=== PATIENT | male | born 1990 | race Caucasian/White ===

== ENCOUNTER 2016-11-20 13:10 | Emergency (ER) | payer SELFPAY ==
--- NOTE | 2016-11-20 13:39 | ER Document Report ---
ED Medical Screen (RME) - General Stated Complaint: VOMITING Notes: onset: 2 days Nausea with vomiting emesis x7-8, has not been able to tolerate PO, no hematemesis or hematochezia Has been having loose bowel movements for the past 2 days most recently within 2 hours. No bright red blood per rectum I have greeted and performed a rapid initial assessment of this patient. A comprehensive ED assessment and evaluation of the patient, analysis of test results and completion of the medical decision making process will be conducted by additional ED providers. TRAVEL OUTSIDE OF THE [place] IN LAST 30 DAYS: No - Related Data Allergies/Adverse Reactions: cefaclor [From Ceclor] Allergy (Verified 11/20/16 13:38) Past Medical History Pulmonary Medical History: Reports: Hx Asthma - Immunizations Hx Diphtheria, Pertussis, Tetanus Vaccination: Yes - unknown last
[2016-11-20 13:40] VITALS: BP 107/68
[2016-11-20] MEDS ORDERED: ONDANSETRON 4 MG TAB.RAPDIS PO ONE (13:40)
[2016-11-20 14:24] LABS: ABSOLUTE BASOPHILS # (AUTO) 0.1 10^3/uL (0.0-0.2); ABSOLUTE EOSINOPHILS # (AUTO) 0.1 10^3/uL (0.0-0.6); ABSOLUTE LYMPHOCYTES (AUTO) 1.6 10^3/uL (0.5-4.7); ABSOLUTE MONOCYTES (AUTO) 0.4 10^3/uL (0.1-1.4); ABSOLUTE NEUT (AUTO) 5.9 10^3/uL (1.7-8.2); BASOPHILS % (AUTO) 0.8 % (0-2); EOSINOPHILS % (AUTO) 1.5 % (0-6); HEMATOCRIT 46.7 % (37.9-51.0); HEMOGLOBIN 15.5 g/dL (13.5-17.0); HGB HCT DIFFERENCE -0.2; MEAN CORPUSCULAR HEMOGLOBIN 29.2 pg (27.0-33.4); MEAN CORPUSCULAR HGB CONC 33.3 g/dL (32.0-36.0); MEAN CORPUSCULAR VOLUME 88 fl (80-97); MONOCYTES % (AUTO) 4.6 % (3-13); RED BLOOD COUNT 5.32 10^6/uL (4.35-5.55); RED CELL DISTRIBUTION WIDTH 12.8 % (11.5-14.0); SEGMENTED NEUTROPHILS % (AUTO) 73.1 % (42-78); WHITE BLOOD COUNT 8.1 10^3/uL (4.0-10.5)
[2016-11-20 14:43] LABS: ALANINE AMINOTRANSFERASE 29 U/L (21-72); ALBUMIN 4.6 g/dL (3.5-5.0); ALKALINE PHOSPHATASE 65 U/L (38-126); ANION GAP 10 (5-19); ASPARTATE AMINO TRANSFERASE 18 U/L (17-59); BLOOD UREA NITROGEN 11 mg/dL (7-20); CALCIUM 9.7 mg/dL (8.4-10.2); CARBON DIOXIDE 27 mmol/L (22-30); CHLORIDE 104 mmol/L (98-107); CREATININE RESULT 0.95 mg/dL (0.52-1.25); GLUCOSE 91 mg/dL (75-110); LIPASE 90.6 U/L (23-300); POTASSIUM 4.2 mmol/L (3.6-5.0); SODIUM 141.4 mmol/L (137-145); TOTAL PROTEIN 6.9 g/dL (6.3-8.2)
== END 2016-11-20 17:10 | disposition left against medical advice (07) ==
LOC: ER 13:10
DX: Z53.9 Procedure and treatment not carried out, unspecified reason (principal); R11.10 Vomiting, unspecified
CPT/HCPCS: 99281; 36415; 83690; 85025; 80053; S0119

== ENCOUNTER 2019-09-29 00:38 | Emergency (ER) | payer OTHER ==
--- NOTE | 2019-09-29 02:24 | RADIOLOGY REPORT (SQ) ---
CLINICAL HISTORY: bone pain COMPARISON: None. TECHNIQUE: XR FOOT 3 OR MORE VIEWS 09/29/2019 12:00 AM [employer] FINDINGS: There is an old fracture at the base of the fifth metatarsal. Joint spaces are preserved. Soft tissues are unremarkable. IMPRESSION: No acute osseous findings.
--- NOTE | 2019-09-29 03:03 | ER Document Report ---
ED Extremity Problem, Lower - General Chief Complaint: Foot Injury Stated Complaint: RIGHT FOOT PAIN Time Seen by Provider: 09/29/19 02:32 Notes: 29-year-old male presents with right foot pain that that started after he injured it while taking out the garbage. Patient states he stepped next to the palate and he lost his footing causing his weight to go onto the foot. Patient states most of his pain is lateral. Patient denies any previous injury to this foot. TRAVEL OUTSIDE OF THE [place] IN LAST 30 DAYS: No - Related Data Allergies/Adverse Reactions: [facility] Allergy (Verified 11/20/16 13:38) Past Medical History - Social History Smoking Status: Current Every Day Smoker Frequency of alcohol use: Occasional Drug Abuse: None Family History: Reviewed & Not Pertinent Patient has suicidal ideation: No Patient has homicidal ideation: No Pulmonary Medical History: Reports: Hx Asthma Renal/ Medical History: Denies: Hx Peritoneal Dialysis - Immunizations Hx Diphtheria, Pertussis, Tetanus Vaccination: Yes - unknown last Review of Systems - Review of Systems Notes: Constitutional: Negative for fever. HENT: Negative for sore throat. Eyes: Negative for visual changes. Cardiovascular: Negative for chest pain. Respiratory: Negative for shortness of breath. Gastrointestinal: Negative for abdominal pain, vomiting or diarrhea. Genitourinary: Negative for dysuria. Musculoskeletal: Positive for right foot pain. Negative for back pain. Skin: Negative for rash. Neurological: Negative for headaches, weakness or numbness. 10 point ROS negative except as marked above and in HPI. Physical Exam - Vital signs Vitals: Temp Pulse Resp BP Pulse Ox 98.1 F 86 16 127/58 H 98 09/29/19 00:53 09/29/19 00:53 09/29/19 00:53 09/29/19 00:53 09/29/19 00:53 - Notes Notes: GENERAL: Well-appearing, well-nourished and in no acute distress. HEAD: Atraumatic, normocephalic. EYES: Extraocular movements intact, sclera anicteric, conjunctiva are normal. NECK: Normal range of motion, supple without lymphadenopathy or JVD. EXTREMITIES: Normal range of motion, no pitting or edema. No clubbing or cyanosis. Right foot: Distal pedal pulses 2+, mild tenderness to lateral aspect of foot, no lateral/medial malleolus tenderness, able to bear weight. NEUROLOGICAL: Cranial nerves II through XII grossly intact. Normal speech, normal gait. PSYCH: Normal mood, normal affect. SKIN: Warm, Dry, normal turgor, no rashes or lesions noted. Course - Vital Signs Vital signs: Temp Pulse Resp BP Pulse Ox 98.1 F 86 16 127/58 H 98 09/29/19 00:59 09/29/19 00:59 09/29/19 00:59 09/29/19 00:59 09/29/19 00:59 Discharge - Discharge Clinical Impression: Right foot pain Condition: Stable Disposition: HOME, SELF-CARE Additional Instructions: Rest, ice, and elevate right foot. Your x-ray shows an old fracture of the base of your right metatarsal but does not show any new fractures. Take ibuprofen as prescribed. Please follow-up with clinic listed in 3 to 5 days. Return to ER for any worsening symptoms, including fever, worsening foot pain, inability to walk on your foot, increased swelling, redness to area, any other symptoms that are concerning to you. Prescriptions: Ibuprofen [Motrin 800 mg Tablet] 800 mg PO Q8H PRN #30 tab PRN Reason: Forms: Parent Work Note Referrals: KIRSTIN REAGAN MD [ACTIVE STAFF] - Follow up in 3-5 days
[2019-09-29 03:26] VITALS: BP 130/61
== END 2019-09-29 03:24 | disposition home or self-care (01) ==
LOC: ER 00:38
DX: M79.671 Pain in right foot (principal); F17.200 Nicotine dependence, unspecified, uncomplicated
CPT/HCPCS: 99283